=== PATIENT | male | born 1960 | race Two or more races ===

== ENCOUNTER 2016-06-12 06:58 | Day surgery (SDC) | payer BC ==
[~2016-06-12 06:58] MED LIST: Cefuroxime 10 MG/ML SYRINGE EYELF SCH; Lidocaine 1% PF 2 ML SDV INJECT SCH; Pilocarpine 4% Ophth Soln 15 ML Bot EYELF SCH; Proparacaine 0.5% Ophth Soln 15 ML Bottle EYEBOTH SCH; Tetracaine 0.5% 2 ML Bottle EYELF SCH
[2016-06-12] MEDS: Polymyxin B/Trimethoprim 10 ML Bottle EYELF SCH ×3 (07:20→08:44)
[2016-06-12] MEDS: Apraclonidine 0.5% Ophth Soln 5 ML Bot EYELF SCH ×3 (07:25→08:44)
[2016-06-12] MEDS: Phenylephrine 2.5% Ophth Soln 2 ML Bot EYELF SCH ×5 (07:30→08:23)
--- NOTE | 2016-06-12 07:35 | PCM.PREANE ---
Preanesthetic Assessment - Anesthesia/Transfusion/Family Hx Anesthesia History: Prior Anesthesia Without Reaction Type of Anesthesia Reaction: Unknown Family History of Anesthesia Reaction: No Transfusion History: Unknown - Review of Systems General: No Symptoms Pulmonary: No Symptoms Cardiovascular: No Symptoms (htn) Gastrointestinal: No symptoms Neurological: No Symptoms Other: Reports: None - Physical Assessment NPO Status Date: 06/11/16 NPO Status Time: 20:00 Pulse: 68 O2 Sat by Pulse Oximetry: 96 Respiratory Rate: 16 Blood Pressure: 162/72 Vital Signs: Last Vital Signs Temp 36.6 C 06/12/16 07:10 Pulse 68 06/12/16 07:10 Resp 16 06/12/16 07:10 BP 162/76 H 06/12/16 07:10 Pulse Ox 96 06/12/16 07:10 Height: 1.65 m Weight: 122.47 kg ASA Class: 2 Mental Status: Alert & Oriented x3 Airway Class: Mallampati = 2 Dentition: Reports: Normal Dentition Thyro-Mental Finger Breadths: 3 Mouth Opening Finger Breadths: 3 ROM/Head Extension: Limited/Partial Lungs: Clear to auscultation, Normal respiratory effort Cardiovascular: Regular Rate, Regular Rhythm - Allergies Allergies/Adverse Reactions: Allergies Allergy/AdvReac Type Severity Reaction Status Date / Time No Known Allergies Allergy Verified 06/11/16 14:46 - Blood Blood Available: No Product(s) Available: None - Anesthesia Plan Pre-Op Medication Ordered: None - Acknowledgements Anesthesia Type Planned: MAC Pt an Appropriate Candidate for the Planned Anesthesia: Yes Alternatives and Risks of Anesthesia Discussed w Pt/Guardian: Yes Pt/Guardian Understands and Agrees with Anesthesia Plan: Yes PreAnesthesia Questionnaire - HOME MEDS Home Medications: Home Meds Lisinopril 10 mg PO DAILY 06/11/16 [History] Tetrahydrozoline HCl [Visine] 1 drop EYEBOTH ASDIRECTED 06/11/16 [History] - CURRENT (IN HOUSE) MEDS Current Meds: Current Medications Apraclonidine HCl (Iopidine 0.5% Ophth Soln) 0 ml EYELF ASDIRECTED [facility] Stop: 06/12/16 18:00 Last Admin: 06/12/16 07:25 Dose: 1 drop Cefuroxime Sodium (Zinacef) 0 mg EYELF ASDIRECTED [facility] Stop: 06/12/16 18:00 Lidocaine HCl (Xylocaine-Mpf 1%) 2 ml INJECT ASDIRECTED [facility] Stop: 06/12/16 18:00 Phenylephrine HCl (Angel-Synephrine 2.5% Ophth Soln) 0 ml EYELF ASDIRECTED [facility] Stop: 06/12/16 18:00 Pilocarpine HCl (Pilocar 4% Ophth Soln) 0 ml EYELF ASDIRECTED [facility] Stop: 06/12/16 18:00 Polymyxin/Trimethoprim Sulfate (Polytrim Ophth Soln) 0 ml EYELF ASDIRECTED [facility] Stop: 06/12/16 18:00 Last Admin: 06/12/16 07:20 Dose: 1 drop Proparacaine HCl (Proparacaine 0.5% Ophth Soln) 0 ml EYEBOTH ASDIRECTED [facility] Stop: 06/12/16 18:00 Tetracaine (Pontocaine 0.5% Ophth Drops) 0 ml EYELF ASDIRECTED [facility] Stop: 06/12/16 18:00 Tropicamide (Mydriacyl 1% Ophth Soln) 0 ml EYELF ASDIRECTED [facility] Stop: 06/12/16 18:00 Preanesthetic Assessment - PHYSICAL ASSESSMENT O2 Sat by Pulse Oximetry: 96 RR: 16 Vital Signs: Last Vital Signs Temp 36.6 C 06/12/16 07:10 Pulse 68 06/12/16 07:10 Resp 16 06/12/16 07:10 BP 162/76 H 06/12/16 07:10 Pulse Ox 96 06/12/16 07:10 Height: 1.65 m Weight: 122.47 kg NPO Status Date: 06/11/16 NPO Status Time: 20:00 - ALLERGIES Allergies/Adverse Reactions: Allergies Allergy/AdvReac Type Severity Reaction Status Date / Time No Known Allergies Allergy Verified 06/11/16 14:46
--- NOTE | 2016-06-12 08:47 | PCM48HPAN ---
Post Anesthesia Note - EVALUATION WITHIN 48HRS OF ANESTHETIC Vital Signs in Normal Range: Yes Patient Participated in Evaluation: Yes Respiratory Function Stable: Yes Airway Patent: Yes Cardiovascular Function Stable: Yes Hydration Status Stable: Yes Pain Control Satisfactory: Yes Nausea and Vomiting Control Satisfactory: Yes Mental Status Recovered: Yes (x)
[2016-06-12 09:11] VITALS: BP 148/80
== END 2016-06-12 08:56 | disposition home or self-care (01) ==
LOC: JD.SDS 06:58
PROVIDERS: ATTEND Ophthalmology
DX: H26.9 Unspecified cataract (principal); I10 Essential (primary) hypertension; Z90.49 Acquired absence of other specified parts of digestive tract; Z79.899 Other long term (current) drug therapy
CPT/HCPCS: 66984; A9270; C1780; J0697

== ENCOUNTER 2016-09-11 07:27 | Day surgery (SDC) | payer BC ==
[~2016-09-11 07:27] MED LIST changes: -Cefuroxime 10 MG/ML SYRINGE EYELF SCH; +Cefuroxime 10 MG/ML SYRINGE EYERT SCH; -Pilocarpine 4% Ophth Soln 15 ML Bot EYELF SCH; +Pilocarpine 4% Ophth Soln 15 ML Bot EYERT SCH; -Proparacaine 0.5% Ophth Soln 15 ML Bottle EYEBOTH SCH; -Tetracaine 0.5% 2 ML Bottle EYELF SCH
[2016-09-11] MEDS: Polymyxin B/Trimethoprim 10 ML Bottle EYERT SCH ×3 (07:41→09:03)
[2016-09-11] MEDS: Brimonidine 0.2% Ophth Soln 5 ML Bottle EYERT SCH ×3 (07:45→09:03)
--- NOTE | 2016-09-11 07:45 | PCM.PREANE ---
Preanesthetic Assessment - Anesthesia/Transfusion/Family Hx Anesthesia History: Prior Anesthesia Without Reaction Type of Anesthesia Reaction: Other (see below) Family History of Anesthesia Reaction: No Transfusion History: No Prior Transfusion(s) Type of Transfusion Reactions: Reports: Unknown - Review of Systems General: No Symptoms Pulmonary: No Symptoms Cardiovascular: No Symptoms, Other (HTN, on meds) Gastrointestinal: No symptoms Neurological: No Symptoms Other: Reports: None - Physical Assessment NPO Status Date: 09/11/16 NPO Status Time: 05:00 (water this am ) Pulse: 75 O2 Sat by Pulse Oximetry: 93 Respiratory Rate: 16 Blood Pressure: 168/89 Height: 1.65 m Weight: 122.47 kg ASA Class: 2 Mental Status: Alert & Oriented x3 (speaks kiswahili) Airway Class: Mallampati = 2 Dentition: Reports: Normal Dentition Thyro-Mental Finger Breadths: 3 Mouth Opening Finger Breadths: 3 ROM/Head Extension: Full Lungs: Clear to auscultation Cardiovascular: Regular Rate, Regular Rhythm - Allergies Allergies/Adverse Reactions: Allergies Allergy/AdvReac Type Severity Reaction Status Date / Time No Known Allergies Allergy Verified 09/10/16 15:37 - Blood Blood Available: No Product(s) Available: None - Anesthesia Plan Pre-Op Medication Ordered: None - Acknowledgements Anesthesia Type Planned: MAC Pt an Appropriate Candidate for the Planned Anesthesia: Yes Alternatives and Risks of Anesthesia Discussed w Pt/Guardian: Yes Pt/Guardian Understands and Agrees with Anesthesia Plan: Yes PreAnesthesia Questionnaire - HOME MEDS Home Medications: Home Meds Lisinopril 10 mg PO DAILY 06/11/16 [History] Tetrahydrozoline HCl [Visine] 1 drop EYEBOTH ASDIRECTED 06/11/16 [History] - CURRENT (IN HOUSE) MEDS Current Meds: Current Medications Brimonidine Tartrate (Alphagan 0.2% Oph Soln) 0 ml EYERT ASDIRECTED [facility] Stop: 09/11/16 18:00 Cefuroxime Sodium (Zinacef) 0 mg EYERT ASDIRECTED [facility] Stop: 09/11/16 18:00 Lidocaine HCl (Xylocaine-Mpf 1%) 10 ml INJECT ASDIRECTED [facility] Stop: 09/11/16 18:00 Phenylephrine HCl (Angel-Synephrine 2.5% Oph Soln) 0 ml EYERT ASDIRECTED [facility] Stop: 09/11/16 18:00 Pilocarpine HCl (Pilocar 4% Ophth Soln) 0 ml EYERT ASDIRECTED [facility] Stop: 09/11/16 18:00 Polymyxin/Trimethoprim Sulfate (Polytrim Ophth Soln) 0 ml EYERT ASDIRECTED [facility] Stop: 09/11/16 18:00 Tetracaine HCl (Tetracaine 0.5% Steri-Unit Adriana) 0 ml EYERT ASDIRECTED [facility] Stop: 09/11/16 18:00 Tropicamide (Mydriacyl 1% Ophth Soln) 0 ml EYERT ASDIRECTED [facility] Stop: 09/11/16 18:00
[2016-09-11] MEDS: Phenylephrine 2.5% Ophth Soln 2 ML Bot EYERT SCH ×5 (07:49→08:43)
[2016-09-11] MEDS: Tetracaine HCl/PF 0.5% 4 ML Bottle EYERT SCH ×2 (08:40→08:50)
--- NOTE | 2016-09-11 09:05 | PCM48HPAN ---
Post Anesthesia Note - EVALUATION WITHIN 48HRS OF ANESTHETIC Vital Signs in Normal Range: Yes Patient Participated in Evaluation: Yes Respiratory Function Stable: Yes Airway Patent: Yes Cardiovascular Function Stable: Yes Hydration Status Stable: Yes Pain Control Satisfactory: Yes Nausea and Vomiting Control Satisfactory: Yes Mental Status Recovered: Yes
[2016-09-11 09:16] VITALS: BP 134/80
== END 2016-09-11 09:11 | disposition home or self-care (01) ==
LOC: JD.SDS 07:27
PROVIDERS: ATTEND Ophthalmology
DX: H26.9 Unspecified cataract (principal); I10 Essential (primary) hypertension; Z79.899 Other long term (current) drug therapy; Z90.49 Acquired absence of other specified parts of digestive tract
CPT/HCPCS: 66984; A9270; J0697; C1780

== ENCOUNTER 2019-06-13 15:22 | Emergency (ER) | payer MEDICAID, OTHER ==
[2019-06-13 15:39] VITALS: PULSE 84
[2019-06-13] MEDS ORDERED: Lidocaine 2% Jelly 10 ML Urojet MUCMEM ONE ×2 (16:16→17:51)
--- NOTE | 2019-06-13 16:18 | EDM.PDOC ---
ED HPI GENERAL MEDICAL PROBLEM - General Chief Complaint: ENT Problem Stated Complaint: rectal pain and bleeding Time Seen by Provider: 06/13/19 16:04 Source of Information: Reports: Patient History Limitations: Reports: Language Barrier - History of Present Illness INITIAL COMMENTS - FREE TEXT/NARRATIVE: 58-year-old male who speaks primarily [place] Citizen and there is a language barrier presents to the ED complaining of rectal pressure pain and bleeding per rectum off and on for the last week. He states he is not had a good bowel movement for about a week. He has had intermittent problems with constipation. He had an open abdominal laparotomy for a ruptured appendix and then it was complicated by abdominal sepsis. He was left open to heal by secondary intention and he has a large incision from his xiphisternum to the pubic symphysis with a mid abdominal hernia measuring approximately 6 cm x 5 cm which is nontender. States he has pressure in the rectal vault Onset: Gradual Onset Date: 06/06/19 Duration: Day(s):, Constant, Getting Worse Location: Reports: Abdomen (Rectal pressure discomfort. Diffuse abdominal lower cramping pain no good bowel movement for a week.) Quality: Reports: Ache, Pressure, Other (Rectal pressure and bleeding.) Severity: Moderate Improves with: Reports: None Worsens with: Reports: None Context: Denies: Activity, Exercise, Lifting, Sick Contact, Trauma, Other Associated Symptoms: Reports: Other (Rectal bleeding and pressure). Denies: Confusion, Chest Pain, Cough, cough w sputum, Diaphoresis, Fever/Chills, Headaches, Malaise, Nausea/Vomiting, Rash, Seizure, Shortness of Breath, Syncope Treatments CABIN MAN: Reports: Other (see below) (None.) Rectal Pain Score (Numeric/FACES): 2 - Related Data Allergies Allergy/AdvReac Type Severity Reaction Status Date / Time No Known Allergies Allergy Verified 06/13/19 15:40 Home Meds: Home Meds Lisinopril 10 mg PO DAILY 06/11/16 [History] Tetrahydrozoline HCl [Visine] 1 drop EYEBOTH ASDIRECTED 06/11/16 [History] Hydrocortisone [Anusol-HC] 30 gm RC QID #1 tube 06/13/19 [Rx] polyethylene glycoL 3350 [MiraLAX] 17 gm PO DAILY #1 canister 06/13/19 [Rx] Past Medical History Cardiovascular History: Reports: Hypertension Gastrointestinal History: Reports: Hemorrhoids - Past Surgical History GI Surgical History: Reports: Appendectomy (Complicated by ruptured appendix with secondary infection in the abdomen requiring a open laparotomy and washout of the abdomen and then his wound was left to heal by secondary intention. He has an mid line surgical abdominal hernia that he states does not bother him. This surgery was done in [place] approximately 22 years ago.) Social & Family History - Tobacco Use Smoking Status *Q: Never Smoker - Recreational Drug Use Recreational Drug Use: No - Living Situation & Occupation Living situation: Reports: Occupation: Employed ED ROS GENERAL - Review of Systems Review Of Systems: See Below Constitutional: Reports: Malaise, Fatigue, Decreased Appetite. Denies: Fever, Chills HEENT: Reports: No Symptoms Respiratory: Reports: No Symptoms Cardiovascular: Reports: No Symptoms Endocrine: Reports: No Symptoms GI/Abdominal: Reports: Abdominal Pain, Constipation, Hematochezia, Other (Not been able to have a good bowel movement for a week) : Reports: Frequency, Other (Teary at x2) Musculoskeletal: Reports: No Symptoms Skin: Reports: Other (Rectal pressure discomfort) Neurological: Reports: No Symptoms Psychiatric: Reports: No Symptoms Hematologic/Lymphatic: Reports: No Symptoms Immunologic: Reports: No Symptoms ED EXAM, GI/ABD - Physical Exam Exam: See Below Exam Limited By: No Limitations General Appearance: Alert, WD/WN, Anxious, Mild Distress, Other (Temperature is 36.3 with a heart rate of 84 and sinus respiratory is 18 BP 1 5682 pulse ox 93% on room air and not sure this is accurate. It will be rechecked) Eyes: Bilateral: Normal Appearance Respiratory/Chest: No Respiratory Distress, Lungs Clear, Normal Breath Sounds, No Accessory Muscle Use, Chest Non-Tender Cardiovascular: Normal Peripheral Pulses, Regular Rate, Rhythm, No Edema, No Gallop, No Murmur, No Rub GI/Abdominal Exam: Distended (Sounds are very active in all 4 quadrants), Abnormal Bowel Sounds, Other ( he distended and minimally tympany to percussion. Midline surgical wound that had to heal by secondary intention with a mid surgical wound hernia. It measures 7 cm x 6 cm and easily reducible. Fairly this resulted from a ruptured appendix with complications) (Male) Exam: No Hernia Rectal (Males) Exam: Hemorrhoids (Palumbo is a large thrombosed hemorrhoid starting at the 3 4 o'clock position of the rectum and measuring nearly 2.5 cm in length or the size of a large grape. The hemorrhoid is ruptured with clot exuding from the hemorrhoid. Other hemorrhoids were identified.) Back Exam: Normal Inspection, Full Range of Motion. No: CVA Tenderness (L), CVA Tenderness (R) Extremities: Normal Inspection, Normal Range of Motion, Non-Tender Neurological: Alert, Oriented, CN II-XII Intact, Normal Cognition Psychiatric: Normal Affect, Normal Mood Skin Exam: Warm, Dry, Intact, Normal Color, No Rash Course - Vital Signs Last Recorded V/S: Last Vital Signs Temp 36.3 C 06/13/19 15:38 Pulse 84 06/13/19 15:38 Resp 18 06/13/19 15:38 BP 156/82 H 06/13/19 15:38 Pulse Ox 93 L 06/13/19 15:38 - Orders/Labs/Meds Orders: Active Orders 24 hr Category Date Time Status Abdomen 1V Flat [CR] Stat Exams 06/13/19 16:14 Taken fatuma Holt [Tucks] Med 06/13/19 17:49 Active 1 pad TOP ASDIRECTED PRN Medication Orders Fatuma Holt (Tucks) 1 pad TOP ASDIRECTED PRN PRN Reason: rectal pain Meds: Medications Generic Name Dose Route Start Last Admin Trade Name Freq PRN Reason Stop Dose Admin Witch Miguel 1 pad 06/13/19 17:49 Tucks TOP ASDIRECTED PRN rectal pain Discontinued Medications Generic Name Dose Route Start Last Admin Trade Name Freq PRN Reason Stop Dose Admin Lidocaine HCl 10 ml 06/13/19 16:16 06/13/19 17:47 Xylocaine 2% Jelly MUCMEM 06/13/19 16:17 10 ml ONETIME ONE Administration Lidocaine HCl 10 ml 06/13/19 17:51 Xylocaine 2% Jelly MUCMEM 06/13/19 17:52 ONETIME ONE - Radiology Interpretation Free Text/Narrative:: 58-year-old male of [place] Citizen [place] descent presents to the ED complaining primarily of rectal pressure discomfort with rectal bleeding and no good bowel movement for a week. Exam reveals his abdomen to be distended with evidence of a large midline laparotomy wound that healed by secondary intention after a ruptured appendix 20 years ago. Then KUB will be done and then I will have a look at his rectum with a plan to see how we can resolve his problems which seem to be that of constipation. - Re-Assessments/Exams Free Text/Narrative Re-Assessment/Exam: 06/13/19 17:11 KUB does reveal increased stool particulate throughout the cecum and right hemicolon portions of the transverse colon and there is some stool in the rectal vault. He is not super constipated. I will have a look at his rectum to see where the bleeding is coming from likely from hemorrhoids etc. possible sigmoidoscopy is in order. 06/13/19 17:43 his daughter who acted as the interpreter and translator we were able to have a look at his anus and he has a large thrombosed hemorrhoid at the 3:00 4 o'clock position which has already ulcerated and is exuding clot. Byers is therefore going to be conservative with soaking in hot water with Epson salts 4 times daily for about 5 to 10 minutes and then applying Anusol HC cream lidocaine jelly as needed for pain relief and which miguel pads over top of that to help shrink the hemorrhoid. Jested MiraLAX powder 17 g or 1 scoop daily to prevent constipation as I suspect this is likely the cause of the hemorrhoids. 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 - Departure Time of Disposition: 17:49 Disposition: Home, Self-Care 01 Condition: Fair Clinical Impression: External hemorrhoid, bleeding - Discharge Information *PRESCRIPTION DRUG MONITORING PROGRAM REVIEWED*: Not Applicable *COPY OF PRESCRIPTION DRUG MONITORING REPORT IN PATIENT KEITH: Not Applicable Prescriptions: Hydrocortisone [Anusol-HC] 30 gm RC QID #1 tube polyethylene glycoL 3350 [MiraLAX] 17 gm PO DAILY #1 canister Instructions: Constipation, Adult, [id number], Hemorrhoids, [id number] Referrals: PCP,None [Primary Care Provider] - Forms: ED Department Discharge Additional Instructions: Evaluation in the emergency room today in regards to bleeding per rectum with rectal pain. Examination reveals that you have a thrombosed external hemorrhoid that has ruptured and has clot coming out of it. This is a good thing. Treatment is soaking in his hot water as you can's with stand for about 5 to 10 minutes 4 times daily for the next 3 days. Then apply Anusol HC cream and lidocaine jelly and then fold a couple of witch miguel pads over top of this on the hemorrhoid. This should shrink the hemorrhoid quite substantially over the next 48 to 72 hours Evaluacin en la brooke de emergencias hoy en relacin con el sangrado por recto con dolor rectal. El examen revela que usted tiene diego hemorroide externa trombosada que se brock roto y que tiene un cogulo. sto es diego cosa buena. El tratamiento se sumerge en boudreaux sokaogon rita puede con reposo rosana aproximadamente 5 a 10 minutos 4 veces al da rosana los prximos 3 romero. Luego aplique la crema Anusol HC y la gelatina de lidocana y luego doble un par de almohadillas de hamamelis sobre la hemorroide. [place] debera reducir la hemorroide sustancialmente rosana las prximas 48 a 72 horas. Sepsis Event Note - Evaluation Sepsis Screening Result: No Definite Risk - Focused Exam Vital Signs: Vital Signs Temp Pulse Resp BP Pulse Ox 06/13/19 15:38 36.3 C 84 18 156/82 H 93 L Date Exam was Performed: 06/13/19 Time Exam was Performed: 18:02 - My Orders Last 24 Hours: My Active Orders 06/13/19 16:14 Abdomen 1V Flat [CR] Stat 06/13/19 17:49 witch Miguel [Tucks] 1 pad TOP ASDIRECTED PRN - Assessment/Plan Last 24 Hours: My Active Orders 06/13/19 16:14 Abdomen 1V Flat [CR] Stat 06/13/19 17:49 witch Miguel [Tucks] 1 pad TOP ASDIRECTED PRN
[2019-06-13] MEDS ORDERED: Witch Hazel Medicated Pads 40/Jar TOP PRN (17:49)
[2019-06-13 19:18] VITALS: BP 138/84
--- NOTE | 2019-06-15 07:40 | CR ---
Abdomen: Supine view of the abdomen was obtained. Comparison: No prior abdominal x-ray. Slight degenerative change is noted within the spine. Bowel gas pattern is normal. No abnormal calcifications or soft tissue abnormality is seen. Impression: 1. Nothing acute is seen. Diagnostic code #2 This report was dictated in MDT
== END 2019-06-13 18:22 | disposition home or self-care (01) ==
LOC: JD.ED 15:22
DX: K64.4 Residual hemorrhoidal skin tags (principal)
CPT/HCPCS: 74018; 99283; A9270